=== PATIENT | female | born 1955 | race Caucasian/White ===

== ENCOUNTER → 2017-07-23 | Outpatient (CLI) | payer OTHER | LOC: BRMIMAGING 10:46 | PROVIDERS: ATTEND Family Medicine | DX: Z12.31 Encounter for screening mammogram for malignant neoplasm of breast (principal) | CPT/HCPCS: G0202 ==

== ENCOUNTER → 2018-08-10 | Outpatient (CLI) | payer OTHER | LOC: BRMIMAGING 10:49 | PROVIDERS: ATTEND Family Medicine | DX: Z12.31 Encounter for screening mammogram for malignant neoplasm of breast (principal) ==